=== PATIENT | male | born 1955 ===

== ENCOUNTER 2025-04-09 00:22 | Outpatient (CLI) | payer MEDICARE, SELFPAY ==
--- NOTE | 2025-04-09 13:30 | DI.US_ITS ---
APPROVED REPORT EXAM: Comprehensive 2D, Doppler, and color-flow Echocardiogram Patient Location: [facility] Supervisor: Bob Ashford RDCS (AE) Indications: Murmur Conclusion Normal left ventricular wall thickness and chamber size. Ejection fraction is 65%. Wall motion is n ormal Normal right ventricular size and function Both atria are normal in size Aortic valve is trileaflet and minimally sclerotic with trace regurgitation There is no additional significant valvular disease Wall motion Left Ventricle The left ventricle is normal size. The left ventricular systolic function is normal. The left ventric ular ejection fraction is within the normal range. There is normal left ventricular wall thickness. T here is normal LV segmental wall motion. There is no ventricular septal defect visualized. LVEF is 65 %. Right Ventricle The right ventricle is normal size. The right ventricular systolic function is normal. Atria The left atrium size is normal. The right atrium size is normal. The interatrial septum is intact wit h no evidence for an atrial septal defect. Aortic Valve The aortic valve is minimally sclerotic. There is no aortic valvular stenosis. Trace aortic regurgita tion. Mitral Valve The mitral valve is normal in structure. No evidence of mitral valve stenosis. There is no mitral denis ve regurgitation noted. Tricuspid Valve The tricuspid valve is normal in structure. There is no tricuspid valve stenosis. Trace tricuspid reg urgitation. Pulmonic Valve The pulmonary valve is normal in structure. There is no pulmonic valvular stenosis. There is no pulmo lopez valvular regurgitation. Great Vessels The aortic root is normal in size. The ascending aorta is normal in size. IVC is normal in size and c ollapses >50% with inspiration. Pericardium There is no pericardial effusion. 2D Dimensions IVSD d PLAX 0.86 cm M: 0.6-1.2 Ao Root d 3.20 cm M: 3.1 - 3.7 LVPW d PLAX 0.90 cm M: 0.6 - 1.2 Ao Asc Diam d 3.00 cm M: 2.6 - 3.4 LVID d PLAX 4.57 cm M: 4.2 - 5.8 LVDs 2.95 cm M: 2.5 - 4.0 LV EF Teichholz 64.9 % FS 35.43 % LV EDV (Teich) 95.8 mL LV ESV (Teich) 33.6 mL Stroke Vol Index (Teich) 33.43 M-Mode TAPSE 2.37 cm (M/F) >1.7 Auto EF LV EDV A4C 93.5 mL LV EDV A2C 81.6 mL LV EDV BP 86.9 mL LV ESV A4C 33.4 mL LV ESV A2C 30.5 mL LV ESV BP 31.8 mL LVEF(%) A4C 64.3 % LVEF(%) A2C 62.6 % LVEF(%) BP 63.4 % LV SV A4C 60.1 ml LV SV A2C 51.1 ml LV SV BP 55.2 ml LV CO A4C 4.3 L/min LV CO A2C 3.5 L/min LV CO BP 3.9 L/min HR A4C 71.43 BPM HR A2C 69.07 BPM LV EDV Index (BP) LA Volume LA Length A4C 4.0 cm LA Length A2C 4.8 cm LA Area A4C s 8.11 cm2 LA Area A2C s 12.10 cm2 LA Vol A4C A-L 13.98 mL LA Vol A2C A-L 26.09 mL LA Vol Biplane A-L 20.9 mL LA Vol/BSA A4C A-L LA Vol/BSA A2C A-L LA Vol/BSA BP A-L 11.2 mL/m2 LA Vol A4C MOD 13.0 mL LA Vol A2C MOD 25.1 mL LA Vol BP MOD 19.7 mL RA Volume RA Area A4C 10.4 cm2 RA ESV A4C (A-L) 25.0mL RA Vol/BSA A4C A-L RA Length A4C 3.6 cm RA ESV A4C (MOD) 23.7mL LV Diastology MV E' medial 0.098 (>0.07 m/s) MV E Vmax 0.76 (0.4-1.3 m/s) MV E/E' MED 7.81 (<14) MV A Vmax 0.75 (0.4-1.3 m/s) MV E' lateral 0.139 (>0.1 m/s) E/A Ratio 1.0 MV E/E' LAT 5.50 (<14) MV E' Average 0.118 m/s MV E/E'(average) 6.45 Aortic Valve AoV Vmax 1.44 m/s LVOT Vmax 1.06 m/s AoV Peak Grad 8.3 mmHg LVOT Peak Grad 4.5 mmHg AoV Area (Vmax) 1.67 cm2 LVOT VTI 0.236 m AoV VTI 0.306 m LVOT Mean Grad 2.6 mmHg AoV Mean Kevin. 0.97 m/s LVOT SV 53.96 mL AoV Mean Grad 4.4 mmHg LVOT Diam s 1.70 cm AoV Area (VTI) 1.76 cm2 AV Regurg Peak Gr. 8.32 mmHg Velocity Ratio 0.74 Mitral Valve MV DT 162 (160-240 msec) Pulmonary Valve PV Vmax 1.05 (0.5-1.5 m/s) RVOT Vmax 1.15 m/s PV Peak Grad 4.4 mmHg RVOT Peak Gr. 5.3 mmHg PV Mean Kevin 0.74 m/s RVOT VTI 0.202 m PV Mean Grad 2.5 mmHg RVOT Mean Gr. 2.4 mmHg
== END 2025-04-09 00:42 ==
PROVIDERS: PCP Family Medicine; Visit Provider Family Medicine
DX: R01.1 Cardiac murmur, unspecified (principal); I35.0 Nonrheumatic aortic (valve) stenosis
CPT/HCPCS: 93306